=== PATIENT | female | born 1970 | race Caucasian/White ===

== ENCOUNTER 2016-09-14 21:51 | Emergency (ER) | payer OTHER ==
--- NOTE | 2016-09-14 23:45 | ED ORDER SUMMARY ---
..... Patient: FRANSISCO RIDDLE OrderSheet [facility] VisitID: [id number] [place] [address] 46y, F Registration Date/Time: 09/14/2016 ORDER SHEET Weight: 90.7 kg Allergies: No Known Drug Allergy GENERAL ORDERS: MEDICATION ORDERS: Aezoxsntq-Bicjwfjumgr-Unukqigmih Topical 1 application (NOW) (22:50 09/14/2016 LAbe R.N. verbal order read back to Rena STOVER) (22:52 LAbe R.N.) Lidocaine Injection 2 % (soln) (with epi) (23:26 09/14/2016 Rena STOVER) (Ack 23:32 HSoule) (23:45 HSoule) Tdap IM 0.5 mL (NOW) (23:46 09/14/2016 Rena STOVER) (Ack 23:46 HSoule) (23:51 HSoule) IV FLUIDS: ORDER SHEET NOTES: [Electronically signed by Emilie Farr (00:39 09/15/2016)] [Electronically signed by Ian Cifuentes MD (02:26 09/15/2016)] [Electronically locked/signed by Emilie Farr (00:39 09/15/2016)]
--- NOTE | 2016-09-14 23:45 | ED ORDER SUMMARY ---
..... Patient: FRANSISCO RIDDLE OrderSheet [facility] VisitID: [id number] [place] [address] 46y, F Registration Date/Time: 09/14/2016 ORDER SHEET Weight: 90.7 kg Allergies: No Known Drug Allergy GENERAL ORDERS: MEDICATION ORDERS: Hqngdcjgw-Zopnroknxql-Aifdskcvnj Topical 1 application (NOW) (22:50 09/14/2016 LAbe R.N. verbal order read back to Rena STOVER) (22:52 LAbe R.N.) Lidocaine Injection 2 % (soln) (with epi) (23:26 09/14/2016 Rena STOVER) (Ack 23:32 HSoule) (23:45 HSoule) Tdap IM 0.5 mL (NOW) (23:46 09/14/2016 Rena STOVER) (Ack 23:46 HSoule) (23:51 HSoule) IV FLUIDS: ORDER SHEET NOTES: [Electronically signed by Emilie Farr (00:39 09/15/2016)] [Electronically signed by Ian Cifuentes MD (02:26 09/15/2016)] [Electronically locked/signed by Emilie Farr (00:39 09/15/2016)]
--- NOTE | 2016-09-14 23:45 | ED NURSING NOTES ---
Clinical Report - Nurses [facility] [address] [place] [address] 09/14/2016 21:53 Patient: FRANSISCO RIDDLE TRIAGE Triage time 2150. Acuity: LEVEL 4. Chief Complaint: INJURY TO HEAD and (laceration to back left of head). Alert. No acute distress. SEPSIS SCREEN: Sepsis Screen. Negative (no infection suspected/documented). CARMEN COMA SCORE: Carmen Coma Scale: 15- eyes open spontaneously (4); best verbal response- oriented x 4 (5); best motor response- obeys commands (6). --22:02 Marsha Baird R.N. 21:56 09/14/16. BP: 177/103. HR: 76. RR: 18. O2 saturation: 98%. Temp: 97.9 F. Pain level now 0/10. --22:02 Marsha Baird R.N. Weight: 90.7 kg. Height/Length: 60 inches. BMI: 39.1. --22:00 Marsha Baird R.N. Medications None. --21:59 Marsha Baird R.N. Allergies No Known Drug Allergy. --22:00 Marsha Baird R.N. History Arrived by EMS. Historian: patient. Unaccompanied. This occurred just prior to arrival. She sustained a laceration from a blunt force (5 lb can fell off shelf onto pt head). No loss of consciousness. No headache or neck pain. 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 PAST MEDICAL HX: Immunizations: up-to-date. SOCIAL HX: Current every day heavy tobacco smoker- less than 1 pack per day. No drug use. No infectious disease exposure. ABUSE ASSESSMENT: No report of abuse. SELF HARM ASSESSMENT: A self harm assessment was performed. The patient answered "no" to the question "Do you have thoughts of harming or killing yourself?" and "Are you here because you tried to hurt yourself?". FALL RISK ASSESSMENT: Fall risk assessment completed. No fall risk identified. NUTRITIONAL RISK ASSESSMENT: The nutritional risk assessment revealed no deficiencies. FUNCTIONAL ASSESSMENT: Functional assessment: no impairments noted. LEARNING NEEDS ASSESSMENT: The learning needs assessment revealed no barriers. SKIN INTEGRITY ASSESSMENT: Skin integrity risk assessment completed. No skin integrity risk identified. --22:02 Marsha Baird R.N. PROBLEMS: Laceration. --22:00 Marsha Baird R.N. ADDITIONAL SURGERIES: Cholecystectomy. . Hernia Repair. --22:00 Marsha Baird R.N. Interventions ID band on patient. To treatment room. --22:02 Marsha Baird R.N. PHYSICAL ASSESSMENT To room via stretcher. GENERAL / NEURO / PSYCH: Alert. Oriented X 4. Appears in no acute distress. HEENT: Head: laceration present in the left parietal area. Left parietal area. No facial swelling, Figueroa's sign, raccoon eyes or sinus tenderness present. Mucous membranes are pink. RESPIRATORY: Respirations not labored. BACK: No neck or back tenderness. ROM normal to the neck and back. SKIN: Skin is warm and dry. --22:04 Marsha Baird R.N. HEENT: Occiput: 4.0 cm laceration with controlled bleeding of the left side of the occiput. --22:53 Marsha Baird R.N. NURSING PROGRESS NOTES Two patient identifiers checked. Call light placed in reach. Side rails up x 2. Bed placed in lowest position. Brakes of bed on. Patient ready for evaluation- chart flagged. ED physician notified. --22:04 Marsha Baird R.N. 22:46 09/14/2016 [id number] Topical. Allergies verified and confirmed 5 rights. (left occipital aspect of head). --22:52 Marsha Baird R.N. ( placed LET on laceration on left occiput, covered with gauze and tape.). --22:53 Marsha Baird R.N. Care transferred and report given (Emilie FRIAS). --23:35 Marsha Baird R.N. 23:20 09/14/2016 Lidocaine Injection Injectable 2 % given. Allergies verified and confirmed 5 rights. (Administered by provider at bedside). --23:45 Emilie Farr 23:30 09/14/16. WOUND REPAIR: Wound repair performed by ED physician. The wound is linear. Preparation: suture tray set-up with 2% lidocaine with epi. Wound cleansed. Procedure: wound repaired with shantel. Post-procedure: she was stable, no complications, bleeding controlled, neuro-vascular status intact distal to wound, dressing applied and wound care instructions given. Estimated blood loss: 50 mL. Total time of assist / procedure: 15 minutes. --23:46 Emilie Farr 23:51 09/14/2016 TDAP IM 0.5 mL given. (Lot#: [id number], expiration date: 08/02/2018, Bowling Ball Engraver: sanSaveFans! pasteur). Given in the right deltoid. Allergies verified and confirmed 5 rights. Vaccine information statement provided to the patient. --23:51 Emilie Farr late entry - 23:00. Wound cleansed with water and Hibiclens. Wound irrigated with 250 mL sterile NS using a high-pressure irrigation system; patient tolerated procedure well. --00:31 [facility]. DISPOSITION / DISCHARGE 23:52 09/14/16. Condition at departure: improved and stable. The goals identified in the patient's plan of care were met. FALL RISK ASSESSMENT: Fall risk assessment completed. No fall risk identified. --23:52 Emilie Farr 23:51 09/14/16. BP: 184/96. HR: 85. RR: 20. O2 saturation: 100% on room air. Temp: 98 F (oral). Pain level now: 03/08. --23:52 Emilie Farr 00:00 09/15/16. No learning barriers present. Discharge instructions provided and reviewed with the patient. Reviewed medication(s) side effects, precautions, dosing and course information. Prescription(s) given to the patient. Reviewed wound care instructions. Patient verbalized understanding. Written instructions provided in Dutch. ( Follow up with your PCP in seven days for staple removal. Watch for signs of infection. Discussed wound care and head injury precautions. Patient verbalized understanding and had no additional questions at this time.). The patient was discharged by the physician. She was discharged home and accompanied by handling tech. She left the Emergency Department ambulatory and via private vehicle. Hub Cutter Apprentice driving. --00:39 Emilie Farr. Locked/Released at 09/15/2016 0:39 by Emilie Farr,
--- NOTE | 2016-09-14 23:45 | ED CLINICAL REPORT ---
Clinical Report - Physicians/Mid Levels [facility] [address] [place] [address] 09/14/2016 21:53 Patient: FRANSISCO RIDDLE Time Seen: 22:17. Arrived- By private vehicle. Historian- patient. HISTORY OF PRESENT ILLNESS Chief Complaint: INJURY TO HEAD. Location of injuries- head. The patient sustained a moderate blow (5 pound can fell off of a shelf and struck her on the back of the head). She sustained a laceration from a blunt force. Occurred at work. The patient complains of mild pain. The patient sustained a blow to the head. No neck pain or loss of consciousness. REVIEW OF SYSTEMS No chills, fever, sweats, calf pain or chest pain. No cough, difficulty breathing, pedal edema, palpitations or abdominal pain. No constipation, diarrhea, nausea, vomiting or urinary problems. All systems otherwise negative, except as recorded above. PAST HISTORY Last tetanus immunization unknown. Additional Surgeries: Cholecystectomy. . Hernia Repair. Medications: None. Allergies: No Known Drug Allergy. SOCIAL HISTORY Current every day heavy tobacco smoker (cigarette)- less than 1 pack per day. No alcohol use or drug use. FAMILY HISTORY No significant family medical history. ADDITIONAL NOTES The nursing notes have been reviewed. PHYSICAL EXAM Vital Signs: 09/14/2016 21:56 BP: 177/103. HR: 76. RR: 18. O2 saturation: 98%. Temp: 97.9 F. Have been reviewed. Appearance: Alert. Head: Vertex: subcutaneous 2.0 cm laceration. SEE LACERATION PROCEDURE NOTE #1. Eyes: Pupils equal, round and reactive to light. EOM intact. ENT: No dental injury. Pharynx normal. Neck: Painless ROM. Neck non-tender. No vertebral tenderness. CVS: Heart sounds normal. Respiratory: Breath sounds normal. Abdomen: Soft. Back: ROM normal. No vertebral point tenderness. Skin: Skin warm and dry. Normal skin color. Normal skin turgor. Extremities: Extremities atraumatic. Neuro: Oriented X 3. Mood/affect normal. Speech normal. Normal gait. PROGRESS AND PROCEDURES Laceration Repair: Location: scalp. Time-out completed immediately before the procedure. Length: 2 cm. Complexity: simple (stapled). Wound depth/shape- linear. Distal neuro/vascular/tendon status normal. Local anesthesia provided using LET and 2% lidocaine with epi. Prepped with Hibiclens. Wound explored, cleansed, irrigated and examined to the base in bloodless field. Closure of superficial layer: (4 shantel). Post-procedure: she is stable and there are no complications. Bleeding is controlled. Tetanus immunization given. Course of Care: Patient is stable. Patient/family counseled. Old medical records reviewed. Other: (L & I form completed). Disposition: Discharged. Condition: stable. CLINICAL IMPRESSION Single deep laceration to the scalp. INSTRUCTIONS Protect wound and keep wound area clean. You may wash wounds briefly, then dry. [place] should be removed in seven days. Return to work tomorrow. Warnings: TETANUS: You were given a tetanus shot during your visit. Make a note for future reference. GENERAL WARNINGS: Return or contact your physician immediately if your condition worsens or changes unexpectedly, if not improving as expected, or if other problems arise. OTC Medications: Motrin (available over the counter): take according to label instructions. Follow-up: Follow up with your doctor in seven days for staple removal and wound check. Understanding of the discharge instructions verbalized by patient. (Electronically signed by Ian Cifuentes MD 09/15/2016 2:26) Addenda for FRANSISCO RIDDLE VisitID: [id number] Date: 09/14/2016 09/15/2016 0:44 Provider aware of patient vitals, patient clear for discharge. (Electronically signed by Emilie Farr - 09/15/2016 0:44)
--- NOTE | 2016-09-14 23:45 | ED CLINICAL REPORT ---
Clinical Report - Physicians/Mid Levels [facility] [address] [place] [address] 09/14/2016 21:53 Patient: FRANSISCO RIDDLE Time Seen: 22:17. Arrived- By private vehicle. Historian- patient. HISTORY OF PRESENT ILLNESS Chief Complaint: INJURY TO HEAD. Location of injuries- head. The patient sustained a moderate blow (5 pound can fell off of a shelf and struck her on the back of the head). She sustained a laceration from a blunt force. Occurred at work. The patient complains of mild pain. The patient sustained a blow to the head. No neck pain or loss of consciousness. REVIEW OF SYSTEMS No chills, fever, sweats, calf pain or chest pain. No cough, difficulty breathing, pedal edema, palpitations or abdominal pain. No constipation, diarrhea, nausea, vomiting or urinary problems. All systems otherwise negative, except as recorded above. PAST HISTORY Last tetanus immunization unknown. Additional Surgeries: Cholecystectomy. . Hernia Repair. Medications: None. Allergies: No Known Drug Allergy. SOCIAL HISTORY Current every day heavy tobacco smoker (cigarette)- less than 1 pack per day. No alcohol use or drug use. FAMILY HISTORY No significant family medical history. ADDITIONAL NOTES The nursing notes have been reviewed. PHYSICAL EXAM Vital Signs: 09/14/2016 21:56 BP: 177/103. HR: 76. RR: 18. O2 saturation: 98%. Temp: 97.9 F. Have been reviewed. Appearance: Alert. Head: Vertex: subcutaneous 2.0 cm laceration. SEE LACERATION PROCEDURE NOTE #1. Eyes: Pupils equal, round and reactive to light. EOM intact. ENT: No dental injury. Pharynx normal. Neck: Painless ROM. Neck non-tender. No vertebral tenderness. CVS: Heart sounds normal. Respiratory: Breath sounds normal. Abdomen: Soft. Back: ROM normal. No vertebral point tenderness. Skin: Skin warm and dry. Normal skin color. Normal skin turgor. Extremities: Extremities atraumatic. Neuro: Oriented X 3. Mood/affect normal. Speech normal. Normal gait. PROGRESS AND PROCEDURES Laceration Repair: Location: scalp. Time-out completed immediately before the procedure. Length: 2 cm. Complexity: simple (stapled). Wound depth/shape- linear. Distal neuro/vascular/tendon status normal. Local anesthesia provided using LET and 2% lidocaine with epi. Prepped with Hibiclens. Wound explored, cleansed, irrigated and examined to the base in bloodless field. Closure of superficial layer: (4 shantel). Post-procedure: she is stable and there are no complications. Bleeding is controlled. Tetanus immunization given. Course of Care: Patient is stable. Patient/family counseled. Old medical records reviewed. Other: (L & I form completed). Disposition: Discharged. Condition: stable. CLINICAL IMPRESSION Single deep laceration to the scalp. INSTRUCTIONS Protect wound and keep wound area clean. You may wash wounds briefly, then dry. [place] should be removed in seven days. Return to work tomorrow. Warnings: TETANUS: You were given a tetanus shot during your visit. Make a note for future reference. GENERAL WARNINGS: Return or contact your physician immediately if your condition worsens or changes unexpectedly, if not improving as expected, or if other problems arise. OTC Medications: Motrin (available over the counter): take according to label instructions. Follow-up: Follow up with your doctor in seven days for staple removal and wound check. Understanding of the discharge instructions verbalized by patient. (Electronically signed by Ian Cifuentes MD 09/15/2016 2:26) Addenda for FRANSISCO RIDDLE VisitID: [id number] Date: 09/14/2016 09/15/2016 0:44 Provider aware of patient vitals, patient clear for discharge. (Electronically signed by Emilie Farr - 09/15/2016 0:44)
--- NOTE | 2016-09-14 23:45 | ED NURSING NOTES ---
Clinical Report - Nurses [facility] [address] [place] [address] 09/14/2016 21:53 Patient: FRANSISCO RIDDLE TRIAGE Triage time 2150. Acuity: LEVEL 4. Chief Complaint: INJURY TO HEAD and (laceration to back left of head). Alert. No acute distress. SEPSIS SCREEN: Sepsis Screen. Negative (no infection suspected/documented). CARMEN COMA SCORE: Carmen Coma Scale: 15- eyes open spontaneously (4); best verbal response- oriented x 4 (5); best motor response- obeys commands (6). --22:02 Marsha Baird R.N. 21:56 09/14/16. BP: 177/103. HR: 76. RR: 18. O2 saturation: 98%. Temp: 97.9 F. Pain level now 0/10. --22:02 Marsha Baird R.N. Weight: 90.7 kg. Height/Length: 60 inches. BMI: 39.1. --22:00 Marsha Baird R.N. Medications None. --21:59 Marsha Baird R.N. Allergies No Known Drug Allergy. --22:00 Marsha Baird R.N. History Arrived by EMS. Historian: patient. Unaccompanied. This occurred just prior to arrival. She sustained a laceration from a blunt force (5 lb can fell off shelf onto pt head). No loss of consciousness. No headache or neck pain. 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 PAST MEDICAL HX: Immunizations: up-to-date. SOCIAL HX: Current every day heavy tobacco smoker- less than 1 pack per day. No drug use. No infectious disease exposure. ABUSE ASSESSMENT: No report of abuse. SELF HARM ASSESSMENT: A self harm assessment was performed. The patient answered "no" to the question "Do you have thoughts of harming or killing yourself?" and "Are you here because you tried to hurt yourself?". FALL RISK ASSESSMENT: Fall risk assessment completed. No fall risk identified. NUTRITIONAL RISK ASSESSMENT: The nutritional risk assessment revealed no deficiencies. FUNCTIONAL ASSESSMENT: Functional assessment: no impairments noted. LEARNING NEEDS ASSESSMENT: The learning needs assessment revealed no barriers. SKIN INTEGRITY ASSESSMENT: Skin integrity risk assessment completed. No skin integrity risk identified. --22:02 Marsha Baird R.N. PROBLEMS: Laceration. --22:00 Marsha Baird R.N. ADDITIONAL SURGERIES: Cholecystectomy. . Hernia Repair. --22:00 Marsha Baird R.N. Interventions ID band on patient. To treatment room. --22:02 Marsha Baird R.N. PHYSICAL ASSESSMENT To room via stretcher. GENERAL / NEURO / PSYCH: Alert. Oriented X 4. Appears in no acute distress. HEENT: Head: laceration present in the left parietal area. Left parietal area. No facial swelling, Figueroa's sign, raccoon eyes or sinus tenderness present. Mucous membranes are pink. RESPIRATORY: Respirations not labored. BACK: No neck or back tenderness. ROM normal to the neck and back. SKIN: Skin is warm and dry. --22:04 Marsha Baird R.N. HEENT: Occiput: 4.0 cm laceration with controlled bleeding of the left side of the occiput. --22:53 Marsha Baird R.N. NURSING PROGRESS NOTES Two patient identifiers checked. Call light placed in reach. Side rails up x 2. Bed placed in lowest position. Brakes of bed on. Patient ready for evaluation- chart flagged. ED physician notified. --22:04 Marsha Baird R.N. 22:46 09/14/2016 [id number] Topical. Allergies verified and confirmed 5 rights. (left occipital aspect of head). --22:52 Marsha Baird R.N. ( placed LET on laceration on left occiput, covered with gauze and tape.). --22:53 Marsha Baird R.N. Care transferred and report given (Emilie FRIAS). --23:35 Marsha Baird R.N. 23:20 09/14/2016 Lidocaine Injection Injectable 2 % given. Allergies verified and confirmed 5 rights. (Administered by provider at bedside). --23:45 Emilie Farr 23:30 09/14/16. WOUND REPAIR: Wound repair performed by ED physician. The wound is linear. Preparation: suture tray set-up with 2% lidocaine with epi. Wound cleansed. Procedure: wound repaired with shantel. Post-procedure: she was stable, no complications, bleeding controlled, neuro-vascular status intact distal to wound, dressing applied and wound care instructions given. Estimated blood loss: 50 mL. Total time of assist / procedure: 15 minutes. --23:46 Emilie Farr 23:51 09/14/2016 TDAP IM 0.5 mL given. (Lot#: [id number], expiration date: 08/02/2018, Daycare Manager: sanRoomlr pasteur). Given in the right deltoid. Allergies verified and confirmed 5 rights. Vaccine information statement provided to the patient. --23:51 Emilie Farr late entry - 23:00. Wound cleansed with water and Hibiclens. Wound irrigated with 250 mL sterile NS using a high-pressure irrigation system; patient tolerated procedure well. --00:31 [facility]. DISPOSITION / DISCHARGE 23:52 09/14/16. Condition at departure: improved and stable. The goals identified in the patient's plan of care were met. FALL RISK ASSESSMENT: Fall risk assessment completed. No fall risk identified. --23:52 Emilie Farr 23:51 09/14/16. BP: 184/96. HR: 85. RR: 20. O2 saturation: 100% on room air. Temp: 98 F (oral). Pain level now: 03/08. --23:52 Emilie Farr 00:00 09/15/16. No learning barriers present. Discharge instructions provided and reviewed with the patient. Reviewed medication(s) side effects, precautions, dosing and course information. Prescription(s) given to the patient. Reviewed wound care instructions. Patient verbalized understanding. Written instructions provided in B[place]. ( Follow up with your PCP in seven days for staple removal. Watch for signs of infection. Discussed wound care and head injury precautions. Patient verbalized understanding and had no additional questions at this time.). The patient was discharged by the physician. She was discharged home and accompanied by fire behavior analyst. She left the Emergency Department ambulatory and via private vehicle. Climatologist driving. --00:39 Emilie Farr. Locked/Released at 09/15/2016 0:39 by Emilie Farr,
--- NOTE | 2016-09-15 02:26 | ED MED RECONCILIATION SUMMARY ---
Patient: FRANSISCO RIDDLE Medication Reconciliation Report [facility] VisitID: [id number] [address] [place] [address] 46y, F Registration Date/Time: 09/14/2016 Weight: 90.7 kg Height/Length: 60 in. BMI: 39.1 ALLERGIES: No Known Drug Allergy The patient's Home Medications are listed below: NONE. The source(s) of the original Home Medication information: Not obtained. The following Medications were given to the patient in the Emergency Department: [id number] [TOPICAL] Topical, administered: 09/14/2016 10:46:00 PM Lidocaine [Injection] Injection 2 %, administered: 09/14/2016 11:20:00 PM TDAP [IM] IM 0.5 mL, administered: 09/14/2016 11:51:00 PM The following Medications were prescribed to the patient: Motrin (available over the counter): take according to label instructions. -- Ian Cifuentes MD
--- NOTE | 2016-09-15 02:26 | ED MAR SUMMARY ---
..... Medication Administration Record [facility] [address] [place] [address] Patient: FRANSISCO RIDDLE Visit ID: [id number] 46y, F Weight: 90.7 kg Height/Length: 60 in BMI: 39.1 ALLERGIES: No Known Drug Allergy Given 22:46 09/14/2016 Marsha Baird R.N. Medication Administered: [id number] [TOPICAL], Dose: Topical. Medication Ordered: Ufytbenpu-Ehaisyjpfqv-Qtniadmmuw Topical 1 application (NOW). Given 23:20 09/14/2016 Emilie Farr, Medication Administered: LIDOCAINE [INJECTION], Dose: 2 % Injectable Injection. Medication Ordered: Lidocaine Injection 2 % (soln) (with epi). Given 23:51 09/14/2016 Emilie Farr, Medication Administered: TDAP [IM], Dose: 0.5 mL IM. Medication Ordered: Tdap IM 0.5 mL (NOW).
--- NOTE | 2016-09-15 02:26 | ED MED RECONCILIATION SUMMARY ---
Patient: FRANSISCO RIDDLE Medication Reconciliation Report [facility] VisitID: [id number] [address] [place] [address] 46y, F Registration Date/Time: 09/14/2016 Weight: 90.7 kg Height/Length: 60 in. BMI: 39.1 ALLERGIES: No Known Drug Allergy The patient's Home Medications are listed below: NONE. The source(s) of the original Home Medication information: Not obtained. The following Medications were given to the patient in the Emergency Department: [id number] [TOPICAL] Topical, administered: 09/14/2016 10:46:00 PM Lidocaine [Injection] Injection 2 %, administered: 09/14/2016 11:20:00 PM TDAP [IM] IM 0.5 mL, administered: 09/14/2016 11:51:00 PM The following Medications were prescribed to the patient: Motrin (available over the counter): take according to label instructions. -- Ian Cifuentes MD
--- NOTE | 2016-09-15 02:26 | ED DISCHARGE INSTRUCTIONS ---
Patient: FRANSISCO RIDDLE General Instructions [facility] VisitID: [id number] [place] [address] 46y, F Registration Date/Time: 09/14/2016 Single deep laceration to the scalp. INSTRUCTIONS Protect wound and keep wound area clean. You may wash wounds briefly, then dry. Osman should be removed in seven days. Return to work tomorrow. Warnings: TETANUS: You were given a tetanus shot during your visit. Make a note for future reference. GENERAL WARNINGS: Return or contact your physician immediately if your condition worsens or changes unexpectedly, if not improving as expected, or if other problems arise. OTC Medications: Motrin (available over the counter): take according to label instructions. Follow-up: Follow up with your doctor in seven days for staple removal and wound check. Understanding of the discharge instructions verbalized by patient. ADDITIONAL INFORMATION Laceration, Scalp (Sutures Or [place]) A laceration is a cut through the skin. This will require stitches (sutures) or osman if it is deep. Home care The following guidelines will help you care for your laceration at home: During the first two days you may carefully rinse your hair in the shower to remove blood, glass or dirt particles. After two days you may shower and shampoo your hair normally. Have someone help you clean your wound every day: In the shower, wash the area with soap and water. Use a wet cotton swab to loosen and remove any blood or crust that forms. After cleaning, keep the wound clean and dry. Talk with your doctor before applying any antibiotic ointment to the wound. Reapply a fresh bandage. Do not put your head under water (no swimming) until the stitches or osman have been removed. The doctor may prescribe an antibiotic cream or ointment to prevent infection. Do not stop taking this medication until you have finished the prescribed course or the doctor tells you to stop. The doctor may also prescribe medications for pain. Follow the doctors instructions for taking these medications. If you have chronic liver or kidney disease or ever had a stomach ulcer or GI bleeding, talk with your doctor before using these medicines. Follow-up care Follow up with your health care provider. Most scalp wounds heal within seven days. However, an infection can sometimes occur. Check the wound daily for the warning signs listed below. Stitches or osman should be removed from the scalp in about 57 days. When to seek medical care Get prompt medical attention if any of these occur: Increasing pain in the wound Redness, swelling, or pus coming from the wound Fever of 100.4F (38C) or higher, or as directed by your health care provider If stitches or osman come apart or fall out before your next appointment If the wound edges re-open Bleeding not controlled by direct pressure Diphtheria Toxoid Adsorbed, Pertussis Vaccine, Acellular (Adsorbed), Tetanus Toxoid, Adsorbed Suspension for injection What is this medicine? DIPHTHERIA and TETANUS TOXOIDS; PERTUSSIS VACCINE (dif THEER ee uh and TET n us TOK soids; per [employer] car SEEN) is used to prevent diphtheria, tetanus, and pertussis infections. How should I use this medicine? This vaccine is for injection into a muscle. It is given by a health before and after school daycare worker. A copy of Vaccine Information Statements will be given before each vaccination. Read this sheet carefully each time. The sheet may change frequently. Talk to your prawn trawler hand regarding the use of this vaccine in children. While the DTP vaccine may be given to children ages 6 weeks to 7 years and the Tdap vaccine may be given to children at least 10 years old, precautions do apply. What side effects may I notice from receiving this medicine? Side effects that you should report to your doctor or health before and after school daycare worker as soon as possible: allergic reactions like skin rash, itching or hives, swelling of the face, lips, or tongue breathing problems fever of 103 degrees F or more flu-like symptoms inconsolable crying infection pain, tingling, numbness in the hands or feet seizures swelling of arm or leg that was injected unusually weak or tired Side effects that usually do not require immediate medical attention (report these side effects to your doctor or health before and after school daycare worker if they continue or are bothersome): fussy, irritable loss of appetite fever of 102 degrees F or less pain, tenderness, redness, swelling, or a 'knot' at site where injected vomiting What may interact with this medicine? immune globulin medicines that suppress your immune function like adalimumab, anakinra, infliximab medicines to treat cancer medicines that treat or prevent blood clots like warfarin, enoxaparin, and dalteparin steroid medicines like prednisone or cortisone What if I miss a dose? It is important not to miss your dose. Call your doctor or health before and after school daycare worker if you are unable to keep an appointment. Where should I keep my medicine? This drug is given in a hospital or clinic and will not be stored at home. What should I tell my health care provider before I take this medicine? They need to know if you have any of these conditions: blood disorders like hemophilia fever or infection immune system problems neurologic disease seizures an unusual or allergic reaction to vaccines, thimerosal, latex, other medicines, foods, dyes, or preservatives or trying to get breast-feeding What should I watch for while using this medicine? See your health care provider for all shots of this vaccine as directed. To have protection from infection, you must have 3 shots of this vaccine plus boosters as needed. Tell your doctor right away if you have any serious or unusual side effects after getting this vaccine. Ibuprofen Oral tablet What is this medicine? IBUPROFEN (eye BYOO proe fen) is a non-steroidal anti-inflammatory drug (NSAID). It is used for dental pain, fever, headaches or migraines, osteoarthritis, rheumatoid arthritis, or painful monthly periods. It can also relieve minor aches and pains caused by a cold, flu, or sore throat. How should I use this medicine? Take this medicine by mouth with a glass of water. Follow the directions on the prescription label. Take this medicine with food if your stomach gets upset. Try to not lie down for at least 10 minutes after you take the medicine. Take your medicine at regular intervals. Do not take your medicine more often than directed. A special MedGuide will be given to you by the pharmacist with each prescription and refill. Be sure to read this information carefully each time. Talk to your prawn trawler hand regarding the use of this medicine in children. Special care may be needed. What side effects may I notice from receiving this medicine? Side effects that you should report to your doctor or health before and after school daycare worker as soon as possible: allergic reactions like skin rash, itching or hives, swelling of the face, lips, or tongue black or bloody stools, blood in the urine or in vomit breathing problems changes in vision chest pain general ill feeling or flu-like symptoms nausea or vomiting redness, blistering, peeling or loosening of the skin, including inside the mouth slurred speech or weakness on one side of the body stomach pain unexplained weight gain or swelling unusually weak or tired yellowing of eyes or skin Side effects that usually do not require medical attention (report to your doctor or health before and after school daycare worker if they continue or are bothersome): constipation or diarrhea dizziness gas or heartburn stomach upset What may interact with this medicine? Do not take this medicine with any of the following medications: cidofovir ketorolac methotrexate pemetrexed This medicine may also interact with the following medications: alcohol aspirin diuretics lithium other drugs for inflammation like prednisone warfarin What if I miss a dose? If you miss a dose, take it as soon as you can. If it is almost time for your next dose, take only that dose. Do not take double or extra doses. Where should I keep my medicine? Keep out of the reach of children. Store at room temperature between 15 and 30 degrees C (59 and 86 degrees F). Keep container tightly closed. Throw away any unused medicine after the expiration date. What should I tell my health care provider before I take this medicine? They need to know if you have any of these conditions: asthma cigarette smoker drink more than 3 alcohol containing drinks a day heart disease or circulation problems such as heart failure or leg edema (fluid retention) high blood pressure kidney disease liver disease stomach bleeding or ulcers an unusual or allergic reaction to ibuprofen, aspirin, other NSAIDS, other medicines, foods, dyes, or preservatives or trying to get breast-feeding What should I watch for while using this medicine? Tell your doctor or healthcare professional if your symptoms do not start to get better or if they get worse. This medicine does not prevent heart attack or stroke. In fact, this medicine may increase the chance of a heart attack or stroke. The chance may increase with longer use of this medicine and in people who have heart disease. If you take aspirin to prevent heart attack or stroke, talk with your doctor or health before and after school daycare worker. Do not take other medicines that contain aspirin, ibuprofen, or naproxen with this medicine. Side effects such as stomach upset, nausea, or ulcers may be more likely to occur. Many medicines available without a prescription should not be taken with this medicine. This medicine can cause ulcers and bleeding in the stomach and intestines at any time during treatment. Ulcers and bleeding can happen without warning symptoms and can cause . To reduce your risk, do not smoke cigarettes or drink alcohol while you are taking this medicine. You may get drowsy or dizzy. Do not drive, use machinery, or do anything that needs mental alertness until you know how this medicine affects you. Do not stand or sit up quickly, especially if you are an older patient. This reduces the risk of dizzy or fainting spells. This medicine can cause you to bleed more easily. Try to avoid damage to your teeth and gums when you brush or floss your teeth. You have been given the following additional information: Laceration, Scalp Diphtheria Toxoid Adsorbed, Pertussis Vaccine, Acellular (Adsorbed), Tetanus Toxoid, Adsorbed Suspension for injection Ibuprofen Oral tablet Return to work tomorrow. (Electronically signed by Ian Cifuentes MD 09/15/2016 2:26)
--- NOTE | 2016-09-15 02:26 | ED MAR SUMMARY ---
..... Medication Administration Record [facility] [address] [place] [address] Patient: FRANSISCO RIDDLE Visit ID: [id number] 46y, F Weight: 90.7 kg Height/Length: 60 in BMI: 39.1 ALLERGIES: No Known Drug Allergy Given 22:46 09/14/2016 Marsha Baird R.N. Medication Administered: [id number] [TOPICAL], Dose: Topical. Medication Ordered: Orkkwavdb-Tbkdszbjenx-Yolcyigppf Topical 1 application (NOW). Given 23:20 09/14/2016 Emilie Farr, Medication Administered: LIDOCAINE [INJECTION], Dose: 2 % Injectable Injection. Medication Ordered: Lidocaine Injection 2 % (soln) (with epi). Given 23:51 09/14/2016 Emilie Farr, Medication Administered: TDAP [IM], Dose: 0.5 mL IM. Medication Ordered: Tdap IM 0.5 mL (NOW).
--- NOTE | 2016-09-15 02:26 | ED DISCHARGE INSTRUCTIONS ---
Patient: FRANSISCO RIDDLE General Instructions [facility] VisitID: [id number] [place] [address] 46y, F Registration Date/Time: 09/14/2016 Single deep laceration to the scalp. INSTRUCTIONS Protect wound and keep wound area clean. You may wash wounds briefly, then dry. Osman should be removed in seven days. Return to work tomorrow. Warnings: TETANUS: You were given a tetanus shot during your visit. Make a note for future reference. GENERAL WARNINGS: Return or contact your physician immediately if your condition worsens or changes unexpectedly, if not improving as expected, or if other problems arise. OTC Medications: Motrin (available over the counter): take according to label instructions. Follow-up: Follow up with your doctor in seven days for staple removal and wound check. Understanding of the discharge instructions verbalized by patient. ADDITIONAL INFORMATION Laceration, Scalp (Sutures Or [place]) A laceration is a cut through the skin. This will require stitches (sutures) or osman if it is deep. Home care The following guidelines will help you care for your laceration at home: During the first two days you may carefully rinse your hair in the shower to remove blood, glass or dirt particles. After two days you may shower and shampoo your hair normally. Have someone help you clean your wound every day: In the shower, wash the area with soap and water. Use a wet cotton swab to loosen and remove any blood or crust that forms. After cleaning, keep the wound clean and dry. Talk with your doctor before applying any antibiotic ointment to the wound. Reapply a fresh bandage. Do not put your head under water (no swimming) until the stitches or osman have been removed. The doctor may prescribe an antibiotic cream or ointment to prevent infection. Do not stop taking this medication until you have finished the prescribed course or the doctor tells you to stop. The doctor may also prescribe medications for pain. Follow the doctors instructions for taking these medications. If you have chronic liver or kidney disease or ever had a stomach ulcer or GI bleeding, talk with your doctor before using these medicines. Follow-up care Follow up with your health care provider. Most scalp wounds heal within seven days. However, an infection can sometimes occur. Check the wound daily for the warning signs listed below. Stitches or osman should be removed from the scalp in about 57 days. When to seek medical care Get prompt medical attention if any of these occur: Increasing pain in the wound Redness, swelling, or pus coming from the wound Fever of 100.4F (38C) or higher, or as directed by your health care provider If stitches or osman come apart or fall out before your next appointment If the wound edges re-open Bleeding not controlled by direct pressure Diphtheria Toxoid Adsorbed, Pertussis Vaccine, Acellular (Adsorbed), Tetanus Toxoid, Adsorbed Suspension for injection What is this medicine? DIPHTHERIA and TETANUS TOXOIDS; PERTUSSIS VACCINE (dif THEER ee uh and TET n us TOK soids; per [employer] car SEEN) is used to prevent diphtheria, tetanus, and pertussis infections. How should I use this medicine? This vaccine is for injection into a muscle. It is given by a health healthcare applications analyst. A copy of Vaccine Information Statements will be given before each vaccination. Read this sheet carefully each time. The sheet may change frequently. Talk to your visual merchandising director regarding the use of this vaccine in children. While the DTP vaccine may be given to children ages 6 weeks to 7 years and the Tdap vaccine may be given to children at least 10 years old, precautions do apply. What side effects may I notice from receiving this medicine? Side effects that you should report to your doctor or health healthcare applications analyst as soon as possible: allergic reactions like skin rash, itching or hives, swelling of the face, lips, or tongue breathing problems fever of 103 degrees F or more flu-like symptoms inconsolable crying infection pain, tingling, numbness in the hands or feet seizures swelling of arm or leg that was injected unusually weak or tired Side effects that usually do not require immediate medical attention (report these side effects to your doctor or health healthcare applications analyst if they continue or are bothersome): fussy, irritable loss of appetite fever of 102 degrees F or less pain, tenderness, redness, swelling, or a 'knot' at site where injected vomiting What may interact with this medicine? immune globulin medicines that suppress your immune function like adalimumab, anakinra, infliximab medicines to treat cancer medicines that treat or prevent blood clots like warfarin, enoxaparin, and dalteparin steroid medicines like prednisone or cortisone What if I miss a dose? It is important not to miss your dose. Call your doctor or health healthcare applications analyst if you are unable to keep an appointment. Where should I keep my medicine? This drug is given in a hospital or clinic and will not be stored at home. What should I tell my health care provider before I take this medicine? They need to know if you have any of these conditions: blood disorders like hemophilia fever or infection immune system problems neurologic disease seizures an unusual or allergic reaction to vaccines, thimerosal, latex, other medicines, foods, dyes, or preservatives or trying to get breast-feeding What should I watch for while using this medicine? See your health care provider for all shots of this vaccine as directed. To have protection from infection, you must have 3 shots of this vaccine plus boosters as needed. Tell your doctor right away if you have any serious or unusual side effects after getting this vaccine. Ibuprofen Oral tablet What is this medicine? IBUPROFEN (eye BYOO proe fen) is a non-steroidal anti-inflammatory drug (NSAID). It is used for dental pain, fever, headaches or migraines, osteoarthritis, rheumatoid arthritis, or painful monthly periods. It can also relieve minor aches and pains caused by a cold, flu, or sore throat. How should I use this medicine? Take this medicine by mouth with a glass of water. Follow the directions on the prescription label. Take this medicine with food if your stomach gets upset. Try to not lie down for at least 10 minutes after you take the medicine. Take your medicine at regular intervals. Do not take your medicine more often than directed. A special MedGuide will be given to you by the pharmacist with each prescription and refill. Be sure to read this information carefully each time. Talk to your visual merchandising director regarding the use of this medicine in children. Special care may be needed. What side effects may I notice from receiving this medicine? Side effects that you should report to your doctor or health healthcare applications analyst as soon as possible: allergic reactions like skin rash, itching or hives, swelling of the face, lips, or tongue black or bloody stools, blood in the urine or in vomit breathing problems changes in vision chest pain general ill feeling or flu-like symptoms nausea or vomiting redness, blistering, peeling or loosening of the skin, including inside the mouth slurred speech or weakness on one side of the body stomach pain unexplained weight gain or swelling unusually weak or tired yellowing of eyes or skin Side effects that usually do not require medical attention (report to your doctor or health healthcare applications analyst if they continue or are bothersome): constipation or diarrhea dizziness gas or heartburn stomach upset What may interact with this medicine? Do not take this medicine with any of the following medications: cidofovir ketorolac methotrexate pemetrexed This medicine may also interact with the following medications: alcohol aspirin diuretics lithium other drugs for inflammation like prednisone warfarin What if I miss a dose? If you miss a dose, take it as soon as you can. If it is almost time for your next dose, take only that dose. Do not take double or extra doses. Where should I keep my medicine? Keep out of the reach of children. Store at room temperature between 15 and 30 degrees C (59 and 86 degrees F). Keep container tightly closed. Throw away any unused medicine after the expiration date. What should I tell my health care provider before I take this medicine? They need to know if you have any of these conditions: asthma cigarette smoker drink more than 3 alcohol containing drinks a day heart disease or circulation problems such as heart failure or leg edema (fluid retention) high blood pressure kidney disease liver disease stomach bleeding or ulcers an unusual or allergic reaction to ibuprofen, aspirin, other NSAIDS, other medicines, foods, dyes, or preservatives or trying to get breast-feeding What should I watch for while using this medicine? Tell your doctor or healthcare professional if your symptoms do not start to get better or if they get worse. This medicine does not prevent heart attack or stroke. In fact, this medicine may increase the chance of a heart attack or stroke. The chance may increase with longer use of this medicine and in people who have heart disease. If you take aspirin to prevent heart attack or stroke, talk with your doctor or health healthcare applications analyst. Do not take other medicines that contain aspirin, ibuprofen, or naproxen with this medicine. Side effects such as stomach upset, nausea, or ulcers may be more likely to occur. Many medicines available without a prescription should not be taken with this medicine. This medicine can cause ulcers and bleeding in the stomach and intestines at any time during treatment. Ulcers and bleeding can happen without warning symptoms and can cause . To reduce your risk, do not smoke cigarettes or drink alcohol while you are taking this medicine. You may get drowsy or dizzy. Do not drive, use machinery, or do anything that needs mental alertness until you know how this medicine affects you. Do not stand or sit up quickly, especially if you are an older patient. This reduces the risk of dizzy or fainting spells. This medicine can cause you to bleed more easily. Try to avoid damage to your teeth and gums when you brush or floss your teeth. You have been given the following additional information: Laceration, Scalp Diphtheria Toxoid Adsorbed, Pertussis Vaccine, Acellular (Adsorbed), Tetanus Toxoid, Adsorbed Suspension for injection Ibuprofen Oral tablet Return to work tomorrow. (Electronically signed by Ian Cifuentes MD 09/15/2016 2:26)
== END 2016-09-15 | disposition home or self-care (01) ==
LOC: ED SRH 21:51
DX: S01.01XA Laceration without foreign body of scalp, initial encounter (principal); W20.8XXA Other cause of strike by thrown, projected or falling object, initial encounter; Y93.89 Activity, other specified; Y92.89 Other specified places as the place of occurrence of the external cause; Y99.0 Civilian activity done for income or pay; Z23 Encounter for immunization; F17.210 Nicotine dependence, cigarettes, uncomplicated
CPT/HCPCS: 81663